=== PATIENT | female | born 1955 ===

== ENCOUNTER 2021-07-28 13:24 | Outpatient (REF) | payer MEDICAID, SELFPAY ==
[2021-07-30 12:50] LABS: COVID-19 RT-PCR UVMMC Result Negative (Negative)
== END 2021-07-28 13:25 | disposition home or self-care (01) ==
LOC: NCHCN 13:24
PROVIDERS: Visit Provider Internal Medicine
DX: Z20.822 Contact with and (suspected) exposure to COVID-19 (principal); J02.9 Acute pharyngitis, unspecified
CPT/HCPCS: U0003